=== PATIENT | male | born 1950 | race Caucasian/White ===

== ENCOUNTER 2018-05-31 19:14 | Emergency (ER) | payer MEDICARE, OTHER ==
[2018-05-31 19:43] LABS: BASOPHILS # (AUTO) 0.1 10^3/uL (0.0-0.1); BASOPHILS % (AUTO) 1.1 %; EOSINOPHILS # (AUTO) 0.1 10^3/uL (0.0-0.7); HGB - HEMOGLOBIN 14.5 g/dL (14.0-18.0); LYMPHOCYTES # (AUTO) 0.6 10^3/uL (1.5-3.5); LYMPHOCYTES % (AUTO) 7.9 %; MEAN CORPUSCULAR HGB CONC 34.4 g/dL (32.0-36.0); MEAN CORPUSCULAR VOLUME 90.2 fL (80.0-94.0); MEAN PLATELET VOLUME 7.2 fL (7.4-11.4); MONOCYTES # (AUTO) 0.4 10^3/uL (0.0-1.0); NEUTROPHILS # (AUTO) 6.9 10^3/uL (1.5-6.6); PLT - PLATELET COUNT 249 10^3/uL (130-450); RED BLOOD COUNT 4.68 10^6/uL (4.70-6.10); RED CELL DISTRIBUTION WIDTH 14.4 % (12.0-15.0); WHITE BLOOD COUNT 8.1 x10^3/uL (4.8-10.8)
[2018-05-31 20:07] LABS: GLUCOSE, URINE (UA) 100 mg/dL (NEGATIVE); KETONES,URINE (UA) NEGATIVE (NEGATIVE); LEUKOCYTE ESTERASE, URINE NEGATIVE (NEGATIVE); NITRITE,URINE NEGATIVE (NEGATIVE); OCCULT BLOOD,URINE LARGE (NEGATIVE); PROTEIN,URINE 100 mg/dL (NEGATIVE); UROBILINOGEN,URINE 0.2 (NORMAL) E.U./dL (NORMAL)
[2018-05-31 20:09] LABS: ALBUMIN 4.4 g/dL (3.2-5.5); ALBUMIN/GLOBULIN RATIO 1.5 (1.0-2.2); BILIRUBIN,TOTAL 0.6 mg/dL (0.2-1.0); CALCIUM 8.9 mg/dL (8.5-10.3); TOTAL PROTEIN 7.4 g/dL (6.7-8.2)
[2018-05-31] MEDS ORDERED: ONDANSETRON 4 MG/2 ML VIAL IVP STA (20:16)
[2018-05-31] MEDS ORDERED: KETOROLAC 60 MG/2 ML VIAL IVP STA (20:16)
[2018-05-31] MEDS ORDERED: SODIUM CHLORIDE 0.9% 1,000 ML IV ONE (20:16)
--- NOTE | 2018-05-31 20:19 | ED Physician Documentation ---
PD HPI ABD PAIN - Stated complaint Stated Complaint: BACK PX - Chief complaint Chief Complaint: Back Pain - History obtained from History obtained from: Patient - History of Present Illness Timing - onset: Today Timing - duration: Days (1) Timing - details: Abrupt onset Pain level max: 10 Pain level now: 5 Quality: Aching, Pain Location: Other (L flank) Radiation: Other (L groin) Improved by: Other (nothing) Worsened by: Other (nothing) Associated symptoms: Nausea. No: Fever, Vomiting, Hematemesis, Diarrhea, Constipation, Melena, Hematochezia, Dysuria Similar symptoms before: Diagnosis (kidney stones) Recently seen: Not recently seen Review of Systems Constitutional: denies: Fever, Chills Nose: denies: Rhinorrhea / runny nose, Congestion Throat: denies: Sore throat Cardiac: denies: Chest pain / pressure Respiratory: denies: Cough GI: reports: Nausea. denies: Vomiting, Diarrhea : reports: Hematuria. denies: Dysuria, Frequency, Hesitancy Skin: denies: Rash Musculoskeletal: denies: Neck pain Neurologic: denies: Focal weakness, Numbness PD PAST MEDICAL HISTORY - Past Medical History Past Medical History: Yes Cardiovascular: Hypertension, High cholesterol, [place] Respiratory: None Endocrine/Autoimmune: Type 2 diabetes GI: GERD : None HEENT: None Psych: None Musculoskeletal: Osteoarthritis, Chronic back pain Derm: None - Past Surgical History Past Surgical History: Yes Ortho: Hip replacement Cardiovascular: Angioplasty - Present Medications Home Medications: Ambulatory Orders Medication Instructions Recorded Confirmed Atorvastatin [Lipitor] 40 mg ORAL DAILY 02/21/14 02/21/14 Lansoprazole [Prevacid] 30 mg ORAL DAILY 02/21/14 02/21/14 Lisinopril 10 mg ORAL DAILY 02/21/14 02/21/14 Metoprolol Succinate [Toprol Xl] 100 mg ORAL DAILY 02/21/14 02/21/14 Multivitamin with Minerals 1 tab ORAL DAILY 02/21/14 02/21/14 [Myvitalife] Furosemide 20 mg PO DAILY 05/31/18 05/31/18 Hydrocodone/Acetaminophen 1 - 2 each PO Q6H PRN #14 tablet 05/31/18 [Hydrocodon-Acetaminophen 5-325] Ibuprofen [Motrin] 800 mg PO Q8H PRN #30 tablet 05/31/18 Ondansetron Odt [Zofran] 4 mg TL Q6H PRN #10 tablet 05/31/18 - Allergies Allergies/Adverse Reactions: Allergies Allergy/AdvReac Type Severity Reaction Status Date / Time No Known Drug Allergies Allergy Verified 05/31/18 19:38 - Social History Does the pt smoke?: No Smoking Status: Never smoker Does the pt drink ETOH?: Yes Does the pt have substance abuse?: No - Immunizations Immunizations are current?: No Immunizations: TDAP >10years/unknown PD ED PE NORMAL - Vitals Vital signs reviewed: Yes - General General: Alert and oriented X 3, No acute distress - HEENT HEENT: Moist mucous membranes - Neck Neck: Supple, no meningeal sign - Cardiac Cardiac: RRR, Strong equal pulses - Respiratory Respiratory: No respiratory distress, Clear bilaterally - Abdomen Abdomen: Soft, Non tender, Non distended - Back Back: No CVA TTP, No spinal TTP - Derm Derm: Warm and dry - Neuro Neuro: Alert and oriented X 3 - Psych Psych: Normal mood, Normal affect Results - Vitals Vitals: Vital Signs - 24 hr 05/31/18 05/31/18 19:21 21:51 Temperature 36.5 C 36.5 C Heart Rate 86 79 Respiratory 18 12 Rate Blood Pressure 152/96 H 159/109 H O2 Saturation 96 93 Oxygen O2 Source Room air - Labs Labs: Laboratory Tests 05/31/18 05/31/18 05/31/18 19:39 19:39 19:50 WBC 8.1 RBC 4.68 L Hgb 14.5 Hct 42.2 MCV 90.2 MCH 31.0 MCHC 34.4 RDW 14.4 Plt Count 249 MPV 7.2 L Neut # (Auto) 6.9 H Lymph # (Auto) 0.6 L [place] # (Auto) 0.4 Eos # (Auto) 0.1 Baso # (Auto) 0.1 Absolute Nucleated RBC 0.00 Nucleated RBC % 0.1 Sodium 138 Potassium 4.1 Chloride 106 Carbon Dioxide 26 Anion Gap 6.0 BUN 17 Creatinine 1.0 Estimated GFR (MDRD) 74 L Glucose 187 H Calcium 8.9 Total Bilirubin 0.6 AST 34 ALT 35 Alkaline Phosphatase 122 H Total Protein 7.4 Albumin 4.4 Globulin 3.0 Albumin/Globulin Ratio 1.5 Lipase 46 Urine Color BROWN Urine Clarity CLOUDY Urine pH 6.0 Ur Specific [place] 1.025 Urine Protein 100 H Urine Glucose (UA) 100 H Urine Ketones NEGATIVE Urine Occult Blood LARGE H Urine Nitrite NEGATIVE Urine Bilirubin NEGATIVE Urine Urobilinogen 0.2 (NORMAL) Ur Leukocyte Esterase NEGATIVE Urine RBC TNTC H Urine WBC 4-5 Ur Squamous Epith Cells RARE Squamous Urine Bacteria Few Urine Yeast PRESENT Ur Microscopic Review INDICATED Urine Culture Comments NOT INDICATED - Rads (name of study) CT abd/pelvis Radiology: Prelim report reviewed, EMP read contemporaneously, See rad report ( Nephrolithiasis with minimal left hydronephrosis and a proximal left ureteral stone measuring 3 x 3 x 6 mm. Right ureteropelvic junction stone measuring 5 mm although without evidence of hydronephrosis. Note is also made of a bladder stone measuring 2 mm. This could be free within the bladder although this is near the level of the right ureteropelvic junction. Differentiation between a free bladder stone or right ureteropelvic junction stone is limited given the beam hardening artifact from the patient's right total hip prosthesis. Small hiatal hernia. . Cholelithiasis without evidence of cholecystitis. Fatty infiltration of the liver. ) PD MEDICAL DECISION MAKING - ED course Complexity details: reviewed results, re-evaluated patient, considered differential, d/w patient ED course: Patient is a 68-year-old male who presents to the emergency department with ureterolithiasis. Pain is well-controlled. No evidence of UTI. He is well- appearing, nontoxic. No evidence of sepsis. We will continue supportive care and follow-up with his doctor. He would likely benefit from a urology referral from his PCP. Patient counseled regarding signs and symptoms for which I believe and urgent re-evaluation would be necessary. Patient with good understanding of and agreement to plan and is comfortable going home at this time This document was made in part using voice recognition software. While efforts are made to proofread this document, sound alike and grammatical errors may occur. - Sepsis Event Vital Signs: Vital Signs - 24 hr 05/31/18 05/31/18 19:21 21:51 Temperature 36.5 C 36.5 C Heart Rate 86 79 Respiratory 18 12 Rate Blood Pressure 152/96 H 159/109 H O2 Saturation 96 93 Oxygen O2 Source Room air Departure - Departure Disposition: 01 Home, Self Care Clinical Impression: Ureteral stone Condition: Good Instructions: ED Stone Renal W Colic Follow-Up: GABRIELE LUNDBERG MD [Primary Care Provider] - Within 1 week Prescriptions: Hydrocodone/Acetaminophen [Hydrocodon-Acetaminophen 5-325] 1 - 2 each PO Q6H PRN #14 tablet PRN Reason: pain Ibuprofen [Motrin] 800 mg PO Q8H PRN #30 tablet PRN Reason: PAIN &/OR FEVER Ondansetron Odt [Zofran] 4 mg TL Q6H PRN #10 tablet PRN Reason: Nausea / Vomiting Comments: You do have multiple ureteral stones. You should follow-up with urology for further care. Use the medication as needed for pain. Return immediately for fevers. Return if you have uncontrolled pain as well. Return if you worsen in any other way Do not drink alcohol or drive while on narcotic pain medicine. Note that many narcotic pain relievers also contain tylenol/acetaminophen. Please ensure that your total dose of acetaminophen from all sources does not exceed 3 grams (3000mg) per day. You may constipated on this medication, take a stool softener such as "Colace" twice a day while you are on it. Also recommend a [id number] laxative such as senna or MiraLAX any day that you do not have a bowel movement. If you received narcotic pain medication in the emergency department, do not drive or operate machinery for the next 24 hours. Discharge Date/Time: 05/31/18 21:49
[2018-05-31 20:39] LABS: BILIRUBIN,URINE NEGATIVE (NEGATIVE); ICTOTEST,URINE NEGATIVE
[2018-05-31 20:40] LABS: CLARITY,URINE CLOUDY (CLEAR)
[2018-05-31 20:52] LABS: BACTERIA,URINE Few /HPF (None Seen); RBC,URINE TNTC /HPF (0-5); SQUAMOUS EPITHELIAL CELL,UR RARE Squamous (<= Few)
[2018-05-31 20:53] LABS: YEAST,URINE PRESENT
--- NOTE | 2018-05-31 21:16 | CT Report ---
Reason: L flank pain, h/o renal stones Procedure Date: 05/31/2018 Accession Number: [id number] / [id number] Procedure: CT - Abdomen/Pelvis W/O CPT Code: FULL RESULT: EXAM: CT ABDOMEN AND PELVIS EXAM DATE: 05/31/2018 08:49 PM. CLINICAL HISTORY: Left flank pain COMPARISONS: None. TECHNIQUE: Routine helical CT imaging was performed through the abdomen and pelvis. IV contrast: None. Enteric contrast: No. Reconstructions: Coronal and sagittal. In accordance with CT protocol optimization, one or more of the following dose reduction techniques were utilized for this exam: automated exposure control, adjustment of mA and/or KV based on patient size, or use of iterative reconstructive technique. FINDINGS: Lung Bases: Minimal diskoid atelectasis. Small hiatal hernia. Coronary atherosclerosis. Liver: Diffusely decreased density of the liver consistent with fatty infiltration. Gallbladder/Bile Ducts: Contracted gallbladder with cholelithiasis without pericholecystic inflammation. Spleen: Normal. Pancreas: Normal. Adrenal Glands: Normal. Kidneys: There are 2 nonobstructing stones of the right kidney with a right ureteropelvic junction stone measuring 5 mm although without evidence of hydronephrosis. The right ureter is decompressed. On the left there is a nonobstructing stone at the lower pole measuring 7 mm although with minimal left hydronephrosis. There is a proximal left ureteral stone measuring 3 x 3 x 6 mm (3, 67). Peritoneal Cavity/Bowel: Small hiatal hernia. Remainder of the stomach is decompressed. No dilated loops of large or small intestine. The appendix is seen and is unremarkable. Pelvic Organs: There is a 2 mm calcification within the right posterior aspect of the bladder. Prostate unremarkable. Bilateral fat-containing indirect inguinal hernias. Vasculature: Atherosclerosis with the infrarenal abdominal aorta measuring up to 4.6 cm. There is an aortobiiliac stent graft present which extends to the distal aspect of the common iliac arteries bilaterally. Bones: Status post right total hip replacement. Other: None. IMPRESSION: 1. Nephrolithiasis with minimal left hydronephrosis and a proximal left ureteral stone measuring 3 x 3 x 6 mm. 2. Right ureteropelvic junction stone measuring 5 mm although without evidence of hydronephrosis. Note is also made of a bladder stone measuring 2 mm. This could be free within the bladder although this is near the level of the right ureteropelvic junction. Differentiation between a free bladder stone or right ureteropelvic junction stone is limited given the beam hardening artifact from the patient's right total hip prosthesis. 3. Small hiatal hernia. 4. Cholelithiasis without evidence of cholecystitis. 5. Fatty infiltration of the liver. RADIA
[2018-05-31 21:52] VITALS: BP 159/109
== END 2018-05-31 21:49 | disposition home or self-care (01) ==
LOC: ED 19:14
DX: N13.2 Hydronephrosis with renal and ureteral calculous obstruction (principal); K44.9 Diaphragmatic hernia without obstruction or gangrene; N20.1 Calculus of ureter; N21.0 Calculus in bladder; K80.20 Calculus of gallbladder without cholecystitis without obstruction; K76.0 Fatty (change of) liver, not elsewhere classified; E11.9 Type 2 diabetes mellitus without complications; Z87.442 Personal history of urinary calculi; I10 Essential (primary) hypertension
CPT/HCPCS: 36415; 74176; 80053; 81001; 81003; 83690; 85025; 87086; 96361; 96374; 99283; 99284

== ENCOUNTER 2018-10-22 02:21 | Outpatient (CLI) | payer MEDICARE | END 2018-10-22 02:22 | disposition critical access hospital (66) | LOC: EMS 02:21 | PROVIDERS: ATTEND Surgery | DX: R07.9 Chest pain, unspecified (principal); R06.02 Shortness of breath; R60.9 Edema, unspecified; R05 Cough; I25.2 Old myocardial infarction | CPT/HCPCS: A0425; A0427 ==

== ENCOUNTER 2018-10-22 02:58 | Emergency (ER) | payer MEDICARE, OTHER ==
[2018-10-22] MEDS ORDERED: METOPROLOL 5 MG/5 ML VIAL IVP STA (03:12)
--- NOTE | 2018-10-22 03:14 | ED Physician Documentation ---
PD HPI DYSPNEA - Stated complaint Stated Complaint: SOA - History obtained from History obtained from: Patient, EMS - History of Present Illness Timing - onset: Today Timing - onset during: Light activity Timing - duration: Hours (had onset of dyspnea and feeling chest tightness, worsened and so called EMS. They heard wheezing and gave neb treatment with improvement. Has some mild edema as well. No cough.) Timing - details: Abrupt onset, Now resolved (improved significantly with neb treatment enroute) Associated symptoms: Wheezing, Bilateral edema (mild chronic). No: Fever, Cough, Chest pain / discomfort, Unilateral edema Similar symptoms before: Has not had sx before Recently seen: Not recently seen Review of Systems Constitutional: denies: Fever, Chills, Myalgias Nose: denies: Rhinorrhea / runny nose, Congestion Throat: denies: Sore throat Respiratory: denies: Cough GI: denies: Nausea, Vomiting, Diarrhea PD PAST MEDICAL HISTORY - Past Medical History Cardiovascular: Hypertension, High cholesterol, [place] Respiratory: None Endocrine/Autoimmune: Type 2 diabetes GI: GERD : None HEENT: None Psych: None Musculoskeletal: Osteoarthritis, Chronic back pain Derm: None - Past Surgical History Past Surgical History: Yes Ortho: Hip replacement Cardiovascular: Angioplasty - Present Medications Home Medications: Ambulatory Orders Medication Instructions Recorded Confirmed Lansoprazole [Prevacid] 15 mg ORAL DAILY 02/21/14 10/22/18 RX: Atorvastatin [Lipitor] 40 mg ORAL DAILY 02/21/14 10/22/18 RX: Metoprolol Succinate [Toprol 100 mg ORAL DAILY 02/21/14 10/22/18 Xl] RX: Multivitamin with Minerals 1 tab ORAL DAILY 02/21/14 10/22/18 [Myvitalife] RX: Furosemide 20 mg PO DAILY 05/31/18 10/22/18 Acetaminophen [Tylenol] 2 tab PO DAILY 10/22/18 10/22/18 RX: Albuterol Sulf [Ventolin Hfa 2 - 3 puffs INH Q4HR PRN #1 inhaler 10/22/18 Inhaler] RX: Aspirin [Children's Aspirin] 1 tab PO DAILY 10/22/18 10/22/18 RX: Losartan Potassium 1 tab PO DAILY 10/22/18 10/22/18 RX: Naproxen Sodium 1 tab PO DAILY 10/22/18 10/22/18 RX: metFORMIN [Glucophage] 1,000 mg PO DAILY 10/22/18 10/22/18 - Allergies Allergies/Adverse Reactions: Allergies Allergy/AdvReac Type Severity Reaction Status Date / Time No Known Drug Allergies Allergy Verified 10/22/18 03:23 - Social History Does the pt smoke?: No Smoking Status: Never smoker Does the pt drink ETOH?: Yes Does the pt have substance abuse?: No - Immunizations Immunizations are current?: No Immunizations: TDAP >10years/unknown PD ED PE NORMAL - Vitals Vital signs reviewed: Yes - General General: Alert and oriented X 3, No acute distress, Well developed/nourished - HEENT HEENT: Moist mucous membranes, Pharynx benign - Neck Neck: Supple, no meningeal sign, No adenopathy - Cardiac Cardiac: RRR, No murmur - Respiratory Respiratory: No respiratory distress, Clear bilaterally - Abdomen Abdomen: Soft, Non tender - Derm Derm: Normal color, Warm and dry - Extremities Extremities: No deformity, No tenderness to palpate, Normal ROM s pain, No edema, No calf tenderness / cord Results - Vitals Vitals: Vital Signs - 24 hr 10/22/18 10/22/18 10/22/18 03:00 03:35 03:50 Temperature 37.1 C Heart Rate 108 H 102 H 93 Respiratory 22 19 19 Rate Blood Pressure 193/111 H 163/87 H 154/88 H O2 Saturation 94 95 96 10/22/18 10/22/18 10/22/18 04:10 05:01 05:39 Temperature 36.8 C Heart Rate 89 89 84 Respiratory 22 24 20 Rate Blood Pressure 148/96 H 146/98 H 132/98 H O2 Saturation 95 97 95 10/22/18 10/22/18 10/22/18 06:13 06:17 06:25 Temperature Heart Rate 87 86 85 Respiratory 24 15 20 Rate Blood Pressure 156/98 H 128/75 O2 Saturation 96 96 Oxygen O2 Source Room air Oxygen Flow Rate 2 - EKG (time done) presentation Rhythm: NSR [place]: Normal Intervals: Normal IN QRS: Normal Ischemia: Normal ST segments. No: ST elevation c/w ischemia, ST depression - Labs Labs: Laboratory Tests 10/22/18 10/22/18 10/22/18 03:15 03:15 03:15 WBC 8.4 RBC 4.37 L Hgb 13.3 L Hct 40.3 L MCV 92.2 MCH 30.4 MCHC 32.9 RDW 14.8 Plt Count 187 MPV 6.7 L Neut # (Auto) 7.2 H Lymph # (Auto) 0.7 L [place] # (Auto) 0.4 Eos # (Auto) 0.1 Baso # (Auto) 0.0 Absolute Nucleated RBC 0.00 Nucleated RBC % 0.0 Sodium 137 Potassium 3.8 Chloride 100 L Carbon Dioxide 28 Anion Gap 9.0 BUN 16 Creatinine 0.9 Estimated GFR (MDRD) 83 L Glucose 174 H Calcium 8.8 Magnesium 1.5 L Total Bilirubin 0.9 AST 32 ALT 29 Alkaline Phosphatase 100 Troponin I < 0.04 B-Natriuretic Peptide Total Protein 7.2 Albumin 4.0 Globulin 3.2 Albumin/Globulin Ratio 1.3 Lipase 42 10/22/18 10/22/18 03:15 05:16 WBC RBC Hgb Hct MCV MCH MCHC RDW Plt Count MPV Neut # (Auto) Lymph # (Auto) [place] # (Auto) Eos # (Auto) Baso # (Auto) Absolute Nucleated RBC Nucleated RBC % Sodium Potassium Chloride Carbon Dioxide Anion Gap BUN Creatinine Estimated GFR (MDRD) Glucose Calcium Magnesium Total Bilirubin AST ALT Alkaline Phosphatase Troponin I 0.04 B-Natriuretic Peptide 50 Total Protein Albumin Globulin Albumin/Globulin Ratio Lipase - Rads (name of study) chest xray Radiology: Prelim report reviewed, EMP read contemporaneously (no infiltrates nor signs of failure. ), See rad report PD MEDICAL DECISION MAKING - ED course Complexity details: re-evaluated patient (His breathing remains good here in the department. Lab tests do not suggest heart attack, congestive failure, [place], and pneumothorax. His symptoms have been shortness of breath and some wheeziness and tightness and improved with a nebulizer treatment and has remained without symptoms here. I would presume a bronchospastic episode for some reason. He had been sweeping out to the garage earlier in the day but did not feel coughing at the time.), considered differential, d/w patient Departure - Departure Disposition: 01 Home, Self Care Clinical Impression: Acute dyspnea, Acute bronchospasm Condition: Stable Record reviewed to determine appropriate education?: Yes Instructions: ED Dyspnea Shortness of Breath Follow-Up: Ascencion Romero MD [Primary Care Provider] - Prescriptions: RX: Albuterol Sulf [Ventolin Hfa Inhaler] 2 - 3 puffs INH Q4HR PRN #1 inhaler PRN Reason: Shortness Of Air/Wheezing Comments: No signs of more significant process such as heart attack, heart failure, pneumonia, fluid in the lungs or collapsed lung. I would presume this was an episode of bronchospasm or such perhaps related to the dust you would encoun tered earlier. At this point I would not predicted to come back the way that it did but you may have some slight shortness of breath over the next day or 2 and you can use an albuterol inhaler as needed for that. Recheck if worse symptoms or new symptoms develop. Follow-up with your primary care. Discharge Date/Time: 10/22/18 06:26
[2018-10-22 03:24] LABS: BASOPHILS % (AUTO) 0.6 %; EOSINOPHILS # (AUTO) 0.1 10^3/uL (0.0-0.7); EOSINOPHILS % (AUTO) 0.6 %; HGB - HEMOGLOBIN 13.3 g/dL (14.0-18.0); LYMPHOCYTES # (AUTO) 0.7 10^3/uL (1.5-3.5); LYMPHOCYTES % (AUTO) 8.1 %; MEAN CORPUSCULAR HEMOGLOBIN 30.4 pg (27.0-31.0); MEAN CORPUSCULAR HGB CONC 32.9 g/dL (32.0-36.0); MEAN CORPUSCULAR VOLUME 92.2 fL (80.0-94.0); MEAN PLATELET VOLUME 6.7 fL (7.4-11.4); MONOCYTES # (AUTO) 0.4 10^3/uL (0.0-1.0); NEUTROPHILS # (AUTO) 7.2 10^3/uL (1.5-6.6); NEUTROPHILS % (AUTO) 85.7 %; PLT - PLATELET COUNT 187 10^3/uL (130-450); RED BLOOD COUNT 4.37 10^6/uL (4.70-6.10); RED CELL DISTRIBUTION WIDTH 14.8 % (12.0-15.0); WHITE BLOOD COUNT 8.4 x10^3/uL (4.8-10.8)
[2018-10-22 03:36] LABS: ALBUMIN/GLOBULIN RATIO 1.3 (1.0-2.2); BILIRUBIN,TOTAL 0.9 mg/dL (0.2-1.0); CALCIUM 8.8 mg/dL (8.5-10.3); CREATININE 0.9 mg/dL (0.6-1.2); MAGNESIUM 1.5 mg/dL (1.7-2.8); TOTAL PROTEIN 7.2 g/dL (6.7-8.2)
[2018-10-22] MEDS ORDERED: MAGNESIUM SULFATE 2 GRAM 2 GM/50 ML BAG IV ONE (03:52)
--- NOTE | 2018-10-22 04:28 | XRAY Report ---
Reason: dyspnea for few hours Procedure Date: 10/22/2018 Accession Number: [id number] / [id number] Procedure: XR - Chest 1 View X-Ray CPT Code: 68614 FULL RESULT: EXAM: CHEST RADIOGRAPHY EXAM DATE: 10/22/2018 04:19 AM. CLINICAL HISTORY: Dyspnea for few hours. COMPARISON: CHEST 2 VIEW PA/LAT 02/21/2014 5:03 PM. TECHNIQUE: 1 view. FINDINGS: Lungs/Pleura: Pulmonary vascular congestion. Mild bibasilar atelectasis or infiltrate. No pleural effusion seen. No pneumothorax. Mediastinum: Within exam limitations, heart size normal to upper normal. Other: Osteopenia. Degenerative changes in the shoulders. IMPRESSION: 1. Normal to upper normal heart size with pulmonary vascular congestion. 2. Mild bibasilar atelectasis or less likely infiltrate. RADIA
[2018-10-22] MEDS ORDERED: ALBUTEROL NEB 2.5 MG/3 ML INH STA (05:52)
[2018-10-22 06:26] VITALS: BP 128/75
== END 2018-10-22 06:26 | disposition home or self-care (01) ==
LOC: EDUNIT# → ED 02:58
DX: R06.00 Dyspnea, unspecified (principal); J98.01 Acute bronchospasm; I10 Essential (primary) hypertension; E78.00 Pure hypercholesterolemia, unspecified; I25.2 Old myocardial infarction; Z96.649 Presence of unspecified artificial hip joint; E11.9 Type 2 diabetes mellitus without complications; Z79.82 Long term (current) use of aspirin; Z98.61 Coronary angioplasty status
CPT/HCPCS: 36415; 71045; 80053; 83690; 83735; 83880; 84484; 85025; 93005; 96365; 96375; 99283; 99285

== ENCOUNTER 2020-09-19 13:00 | Outpatient (CLI) | payer MEDICARE, OTHER | END 2020-09-19 23:59 | disposition home or self-care (01) | LOC: COV 13:00 | PROVIDERS: ATTEND Family Medicine | DX: R05 Cough (principal); M79.10 Myalgia, unspecified site; R09.81 Nasal congestion; Z20.828 Contact with and (suspected) exposure to other viral communicable diseases ==

== ENCOUNTER 2021-08-17 17:33 | Outpatient (CLI) | payer MEDICARE, OTHER | END 2021-08-17 23:59 | disposition short-term general hospital (02) | LOC: EMS 17:33 | DX: R56.9 Unspecified convulsions (principal) | CPT/HCPCS: A0425; A0427 ==

== ENCOUNTER 2021-09-10 18:54 | Outpatient (CLI) | payer MEDICARE, OTHER | END 2021-09-10 18:55 | disposition critical access hospital (66) | LOC: EMS 18:54 | DX: K62.5 Hemorrhage of anus and rectum (principal); R33.9 Retention of urine, unspecified | CPT/HCPCS: A0425; A0429 ==

== ENCOUNTER 2021-09-10 19:38 | Observation (INO) | payer MEDICARE, OTHER ==
--- NOTE | 2021-09-10 19:46 | ED Physician Documentation ---
PD HPI GI BLEED - Stated complaint Stated Complaint: RECTAL BLEED, BRAIN CA - Additional information Additional information: Patient is a 71-year-old male with known history of brain CA presenting to the emergency department with report of painless bright red blood per rectum earlier this evening. Accompanied by daughter who is present at bedside. Patient recently hospitalized at [facility] for ongoing chemotherapy for his brain carcinoma. Reports was doing well at home however earlier this evening had a bright red bloody bowel movement. Family reports that he has a history of hemorrhoids as well as diverticulosis. He does not take any blood thinning medications. Patient is confused at baseline and is an otherwise poor historian. Review of Systems Unable to obtain: Confused PD PAST MEDICAL HISTORY - Past Medical History Cardiovascular: Hypertension, High cholesterol, [place] Respiratory: None Endocrine/Autoimmune: Type 2 diabetes GI: GERD : None HEENT: None Psych: None Musculoskeletal: Osteoarthritis, Chronic back pain Derm: None - Past Surgical History Past Surgical History: Yes Ortho: Hip replacement Cardiovascular: Angioplasty - Present Medications Home Medications: Ambulatory Orders Medication Instructions Recorded Confirmed Atorvastatin [Lipitor] 40 mg ORAL DAILY 02/21/14 09/10/21 Lansoprazole [Prevacid] 15 mg ORAL DAILY 02/21/14 09/10/21 Metoprolol Succinate [Toprol Xl] 100 mg ORAL DAILY 02/21/14 09/10/21 metFORMIN [Glucophage] 2,000 mg PO DAILY 10/22/18 09/10/21 Cyanocobalamin (Vitamin B-12) 2,000 mg PO DAILY 09/10/21 09/10/21 [Vitamin B-12] Insulin Glargine [Lantus Solostar] 26 units SQ BID 09/10/21 09/10/21 Isosorbide Mononitrate ER [Imdur] 30 mg PO DAILY 09/10/21 09/10/21 Leucovorin Calcium 25 mg PO TID 09/10/21 09/10/21 Levetiracetam [Keppra] 500 mg PO BID 09/10/21 09/10/21 Tamsulosin HCl [Flomax] 0.4 mg PO DAILY 09/10/21 09/10/21 - Allergies Allergies/Adverse Reactions: Allergies Allergy/AdvReac Type Severity Reaction Status Date / Time No Known Drug Allergies Allergy Verified 09/10/21 19:45 - Social History Does the pt smoke?: No Smoking Status: Never smoker Does the pt drink ETOH?: Yes Does the pt have substance abuse?: No - Immunizations Immunizations are current?: No Immunizations: TDAP >10years/unknown PD ED PE NORMAL - General General: No acute distress - HEENT HEENT: Atraumatic - Neck Neck: Supple, no meningeal sign - Cardiac Cardiac: RRR - Respiratory Respiratory: No respiratory distress, Clear bilaterally - Abdomen Abdomen: Normal bowel sounds, Soft, Non tender, Non distended, No organomegaly - Back Back: No CVA TTP - Extremities Extremities: No deformity - Neuro Neuro: research program internship 2-12 intact, No motor deficit, No sensory deficit, Normal speech PD ED PE EXPANDED - Rectal Rectal: Heme Occult Neg - QC+, [employer] present, Other (Gross red blood mixed in with well-formed light brown stool. No appreciable internal or external hemorrhoids. No anal fissure identified.) Results - Vitals Vitals: Vital Signs - 24 hr 09/10/21 09/10/21 09/10/21 19:32 19:42 21:00 Temperature 36.8 C Heart Rate 64 72 78 Respiratory 13 16 16 Rate Blood Pressure 151/84 H 151/84 H 179/81 H O2 Saturation 97 99 100 Oxygen O2 Source Room air - Labs Labs: Microbiology 09/10/21 20:08 Occult Blood - Final Stool Laboratory Tests 09/10/21 09/10/21 09/10/21 20:11 20:11 20:11 WBC 8.4 RBC 4.05 L Hgb 11.5 L Hct 36.0 L MCV 88.9 MCH 28.4 MCHC 31.9 L RDW 16.0 H Plt Count 157 MPV 8.0 Neut # (Auto) 7.8 H Lymph # (Auto) 0.2 L Kinney # (Auto) 0.2 Eos # (Auto) 0.1 Baso # (Auto) 0.0 Absolute Nucleated RBC 0.00 Nucleated RBC % 0.0 PT INR Sodium 134 L Potassium 3.6 Chloride 94 L Carbon Dioxide 30 Anion Gap 10.0 BUN 19 Creatinine 1.0 Estimated GFR (MDRD) 73 L Glucose 58 L* Calcium 8.6 Total Bilirubin 1.2 H AST 21 ALT 30 Alkaline Phosphatase 66 Total Protein 5.7 L Albumin 3.6 Globulin 2.1 Albumin/Globulin Ratio 1.7 Lipase 46 Nasal Adenovirus (PCR) Nasal B. parapertussis DNA (PCR) Nasal Coronavir 229E PCR Nasal Coronavir HKU1 PCR Nasal Coronavir NL63 PCR Nasal Coronavir OC43 PCR Nasal Enterovir/Rhinovir PCR Nasal Influenza B PCR Nasal Influenza A PCR Nasal Parainfluen 1 PCR Nasal Parainfluen 2 PCR Nasal Parainfluen 3 PCR Nasal Parainfluen 4 PCR Nasal RSV (PCR) Nasal B.pertussis DNA PCR Nasal C.pneumoniae (PCR) Pito Human Metapneumo PCR Nasal M.pneumoniae (PCR) Nasal SARS-CoV-2 (PCR) Blood Type O POSITIVE Blood Type Recheck Antibody Screen NEGATIVE 09/10/21 09/10/21 09/10/21 20:35 20:35 22:40 WBC RBC Hgb Hct MCV MCH MCHC RDW Plt Count MPV Neut # (Auto) Lymph # (Auto) Kinney # (Auto) Eos # (Auto) Baso # (Auto) Absolute Nucleated RBC Nucleated RBC % PT 11.9 INR 1.1 Sodium Potassium Chloride Carbon Dioxide Anion Gap BUN Creatinine Estimated GFR (MDRD) Glucose Calcium Total Bilirubin AST ALT Alkaline Phosphatase Total Protein Albumin Globulin Albumin/Globulin Ratio Lipase Nasal Adenovirus (PCR) NOT DETECTED Nasal B. parapertussis DNA (PCR) NOT DETECTED Nasal Coronavir 229E PCR NOT DETECTED Nasal Coronavir HKU1 PCR NOT DETECTED Nasal Coronavir NL63 PCR NOT DETECTED Nasal Coronavir OC43 PCR NOT DETECTED Nasal Enterovir/Rhinovir PCR NOT DETECTED Nasal Influenza B PCR NOT DETECTED Nasal Influenza A PCR NOT DETECTED Nasal Parainfluen 1 PCR NOT DETECTED Nasal Parainfluen 2 PCR NOT DETECTED Nasal Parainfluen 3 PCR NOT DETECTED Nasal Parainfluen 4 PCR NOT DETECTED Nasal RSV (PCR) NOT DETECTED Nasal B.pertussis DNA PCR NOT DETECTED Nasal C.pneumoniae (PCR) NOT DETECTED Pito Human Metapneumo PCR NOT DETECTED Nasal M.pneumoniae (PCR) NOT DETECTED Nasal SARS-CoV-2 (PCR) NOT DETECTED Blood Type Blood Type Recheck O POSITIVE Antibody Screen PD MEDICAL DECISION MAKING - ED course Complexity details: reviewed results, d/w patient, d/w family, d/w library consultant ED course: Patient is 71-year-old male presenting to the emergency department after episode of painless bright red blood per rectum. Patient is currently being treated for brain carcinoma and has confusion at baseline. History is somewhat limited by this fact however family reports that he had an episode of modest bright red blood per rectum that occurred earlier today. They endorsed for history of both diverticulosis as well as hemorrhoids. On arrival to the emergency department he was afebrile, hemodynamically stable without indications of significant blood loss or shock. Rectal exam did demonstrate gross red blood in the rectal vault mixed in with well-formed stool. I did not identify any hemorrhoid or fissure on my rectal examination. His abdomen was otherwise very soft and benign without focal tenderness or indications of peritoneal irritation. Comprehensive labs demonstrated a mild anemia with hemoglobin 11.5 with most recent for comparison in 2019 of 13.0. Given that he is currently being treated for his brain CA with chemotherapy it is difficult to say whether or not this represents acute blood loss. I did obtain a CT of his abdomen pelvis which was largely benign. I did discuss his care directly with the hospitalist service. At this time he will be hospitalized for further evaluation and treatment. Departure - Departure Disposition: ED Place in Observation Clinical Impression: Lower GI bleed Condition: Good Discharge Date/Time: 09/11/21 00:19
[2021-09-10] MEDS ORDERED: IOPAMIDOL-300 100 ML VIAL ONE (20:17)
[2021-09-10 20:20] LABS: BASOPHILS % (AUTO) 0.1 %; EOSINOPHILS # (AUTO) 0.1 10^3/uL (0.0-0.7); EOSINOPHILS % (AUTO) 0.8 %; HGB - HEMOGLOBIN 11.5 g/dL (14.0-18.0); LYMPHOCYTES # (AUTO) 0.2 10^3/uL (1.5-3.5); LYMPHOCYTES % (AUTO) 2.4 %; MEAN CORPUSCULAR HEMOGLOBIN 28.4 pg (27.0-31.0); MEAN CORPUSCULAR HGB CONC 31.9 g/dL (32.0-36.0); MEAN CORPUSCULAR VOLUME 88.9 fL (80.0-94.0); MONOCYTES # (AUTO) 0.2 10^3/uL (0.0-1.0); MONOCYTES % (AUTO) 2.6 %; NEUTROPHILS # (AUTO) 7.8 10^3/uL (1.5-6.6); NEUTROPHILS % (AUTO) 93.5 %; PLT - PLATELET COUNT 157 10^3/uL (130-450); RED BLOOD COUNT 4.05 10^6/uL (4.70-6.10); WHITE BLOOD COUNT 8.4 x10^3/uL (4.8-10.8)
[2021-09-10 20:37] LABS: ALBUMIN 3.6 g/dL (3.2-5.5); ALBUMIN/GLOBULIN RATIO 1.7 (1.0-2.2); BILIRUBIN,TOTAL 1.2 mg/dL (0.2-1.0); CALCIUM 8.6 mg/dL (8.5-10.3); POTASSIUM 3.6 mmol/L (3.5-5.0); TOTAL PROTEIN 5.7 g/dL (6.7-8.2)
[2021-09-10] MEDS ORDERED: DEXTROSE 50% ABBOJECT 25 GM/50 ML SYRINGE IVP STA (20:40)
[2021-09-10 20:50] LABS: INR 1.1 (0.8-1.2); PT - PROTHROMBIN TIME 11.9 secs (9.9-12.6)
[2021-09-10] MEDS ORDERED: IOPAMIDOL-300 100 ML VIAL IVP ONE (21:09)
--- NOTE | 2021-09-10 21:51 | CT Report ---
PROCEDURE: Abdomen/Pelvis W INDICATIONS: GI Bleed CONTRAST: IV CONTRAST: Isovue 300 ml: 100 PO CONTRAST: *NO PO CONTRAST TECHNIQUE: After the administration of intravenous contrast, 5 mm thick sections acquired from the diaphragms to the symphysis. 5 mm thick coronal and sagittal reformats were acquired. For radiation dose reducti on, the following was used: automated exposure control, adjustment of mA and/or kV according to ross ent size. COMPARISON: May 31, 2018 FINDINGS: Inferior chest: No focal consolidation, pleural effusion, or pneumothorax. No cardiomegaly or perica rdial effusion. Gallbladder: No gallbladder wall thickening or pericholecystic fluid. There is small gallstones. Biliary tree: No intra-or extrahepatic biliary ductal dilatation. Liver: The liver demonstrates normal enhancement, size, and contour. Spleen: Normal enhancement, size and morphology is seen. Pancreas: No contour deforming mass or inflammatory change. Adrenals: Normal size without masses. Kidneys/ureters: Normal size and morphology. No solid masses or hydronephrosis. Vasculature: Aortobiiliac stent graft in situ. Dilatation of the infrarenal aorta, measuring up to 4 .1 cm. Lymphatic system: No pathologic enlargement by size criteria. GI/mesentery: Small hiatal hernia. No evidence of intestinal obstruction. Normal appearance of the ap pendix. Moderate stool burden throughout the colon, most prominent in the rectosigmoid region. Peritoneum/Retroperitoneum: No free intraperitoneal gas or large collection. Urinary bladder: The urinary bladder is distended with a smooth thin wall. Pelvic organs: No significant abnormality. Bones/soft tissues: Multifocal degenerative change. A right hip arthroplasty is again noted Trace fat-containing periumbilical hernia. IMPRESSION: 1.Small layering gallstones. 2.Moderate stool burden throughout the colon, most prominent in the rectosigmoid colon. Reviewed by: Brodie Herrera MD on 09/10/2021 9:50 PM PST Approved by: Brodie Herrera MD on 09/10/2021 9:50 PM PST Station ID: [id number]
[2021-09-10] MEDS ORDERED: ACETAMINOPHEN 325 MG TABLET PO PRN (23:04)
[2021-09-10] MEDS ORDERED: SODIUM CHLORIDE FLUSH 0.9% 10 ML SYRINGE IVP PRN (23:04)
[2021-09-10] MEDS ORDERED: ONDANSETRON 4 MG/2 ML VIAL IVP PRN (23:04)
--- NOTE | 2021-09-10 23:12 | HISTORY & PHYSICAL EXAMINATION ---
Chief Complaint - Chief Complaint Chief Complaint: BRBPR History of Present Illness - Admitted From Admitted From:: ED - History Obtained From History obtained from: ED provider and the patient and his daughter, at bedside - History of Present Illness HPI Comment/Other: This is a 71-year-old white male with a history of type 2 diabetes on Insulin and Metformin, coronary disease with old NH in 1993 and prior angioplasty, hypertension, brain cancer (lymphoma) diagnosed Apr [address] [place] Ignacio who manages his chemotherapy at [facility]. He has finished 7 of 8 chemo sessions, and is admitted for 7-9 days for these. He now has marked memory loss, and has seizures (which started 1 month ago). The patient was just discharged from [facility] 1 day ago, having finishing that chemo treatment. Today he had on and off heartburn and poor appetite and was also very constipated. He sat on the toilet for 45 minutes pushing hard with no results. He finally had an episode of large volume bright red blood per rectum at home and presented to the ED. He was found to have hypoglycemia with a serum glucose of 58, but he has not eaten for 9 hours. He had a stable hemoglobin and stable vital signs. He underwent CT imaging of the abdomen/pelvis which showed no evidence of colitis, there are small gallstones and there is significant stool in the rectosigmoid colon. He is being placed in Observation status to monitor his hemoglobin and for any further episodes of rectal bleeding. When asked about his wishes for CODE STATUS, he said he does not know, therefore default will be Full Code. All the details of the above were obtained from his daughter, as he did not even remember if the chemo gives him any side effects or what he usually does all day. History - Past Medical History Cardiovascular: reports: Hypertension, High cholesterol, [place] Respiratory: reports: None Endocrine/Autoimmune: reports: Type 2 diabetes GI: reports: GERD : reports: None HEENT: reports: None Psych: reports: None Musculoskeletal: reports: Osteoarthritis, Chronic back pain Derm: reports: None MRSA Hx?: No Other Past Medical History: Brain CA, on chemo - Past Surgical History Ortho: reports: Hip replacement Cardiovascular: reports: Angioplasty - Family & Social History Living arrangement: At home Living Situation: With family (He lives with his daughter and son-in-law) Social History Notes: Patient does not smoke cigarettes, he quit smoking when he had the NH 1993. He does not alcohol or use illicit drugs or marijuana. 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 He is from his , who got re-, but she still helps him (does laundry). - Substance History Use: Uses substance without health or social issues: NONE - POLST Patient has POLST: No Meds/Allgy - Home Medications Home Medications: Ambulatory Orders Medication Instructions Recorded Confirmed Atorvastatin [Lipitor] 40 mg ORAL DAILY 02/21/14 09/10/21 Lansoprazole [Prevacid] 15 mg ORAL DAILY 02/21/14 09/10/21 Metoprolol Succinate [Toprol Xl] 100 mg ORAL DAILY 02/21/14 09/10/21 metFORMIN [Glucophage] 2,000 mg PO DAILY 10/22/18 09/10/21 Cyanocobalamin (Vitamin B-12) 2,000 mg PO DAILY 09/10/21 09/10/21 [Vitamin B-12] Insulin Glargine [Lantus Solostar] 26 units SQ BID 09/10/21 09/10/21 Isosorbide Mononitrate ER [Imdur] 30 mg PO DAILY 09/10/21 09/10/21 Leucovorin Calcium 25 mg PO TID 09/10/21 09/10/21 Levetiracetam [Keppra] 500 mg PO BID 09/10/21 09/10/21 Tamsulosin HCl [Flomax] 0.4 mg PO DAILY 09/10/21 09/10/21 - Allergies Allergies/Adverse Reactions: Allergies Allergy/AdvReac Type Severity Reaction Status Date / Time No Known Drug Allergies Allergy Verified 09/10/21 19:45 Review of Systems - Constitutional Constitutional: reports: Poor appetite, Weight loss (many lbs lost since started chemo in Apr 2021) - Cardiovascular Cariovascular: reports: Syncope (On Thanksgiving he had syncope and was told it was from marked hypoglycemia (glu was 30), per his daughter.) - Gastrointestinal Gastrointestinal: reports: Abdominal pain (mild pain in lower mid-abdomen) - Neurological Neurological: reports: Memory problems, Seizures - All Other Systems All Other Systems: reports: Reviewed and negative Exam - Vital Signs Vital Signs: Vital Signs x48h Temp Pulse Resp BP Pulse Ox 09/10/21 21:00 78 16 179/81 H 100 09/10/21 19:42 72 16 151/84 H 99 09/10/21 19:32 36.8 C 64 13 151/84 H 97 - Physical Exam General Appearance: positive: No acute distress, Alert Eyes Bilateral: positive: Normal inspection, EOMI ENT: positive: ENT inspection nml, No signs of dehydration Neck: positive: Nml inspection, No JVD Respiratory: positive: No respiratory distress, Breath sounds nml Cardiovascular: positive: Regular rate & rhythm, No murmur Abdomen: positive: Non-tender, Nml bowel sounds, No distention Skin: positive: Warm, Dry Extremities: positive: Non-tender, No pedal edema Neurologic/Psychiatric: positive: Motor nml, Other (Poor memory) Conclusion/Plan - Problem List (1) Lower GI bleed Conclusion/Plan: Possibly he has a diverticular bleed or perhaps a hemorrhoidal bleed. We will follow his H/H every 6 hours. We will plan transfusion if Hgb drops below 7. We will hold any antiplatelet agents and anticoagulants. We will put hold parameters on blood pressure meds, in case there is rebleeding leading to hypotension. Will order a low fiber diet We will consider General Surgery consult for colonoscopy if there is rebleeding (2) Hypoglycemia Conclusion/Plan: Unclear why he had a low glucose of 58, when in the ER, thus we will continue with peripheral IV hydration containing D5. We will hold the Metformin, and not use his usual Lantus dose of 26 units twice daily but decrease the significant to 5 units twice daily Will order hypoglycemia protocol (3) Type 2 diabetes mellitus Conclusion/Plan: Will order a diabetic diet, check morning A1c. We will order sliding scale insulin. (4) Brain cancer Conclusion/Plan: We will continue patient's own (leucovorin). (5) Seizure disorder Conclusion/Plan: His Keppra dose will be continued (6) Poor short term memory Conclusion/Plan: This resulted after going through multiple courses of chemotherapy for the brain lymphoma (7) HTN (hypertension) Conclusion/Plan: We will continue with his usual blood pressure medications once they are reconciled. 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 Continue with his usual beta-kelly dose, holding parameters will be written. (9) PVD (peripheral vascular disease) Conclusion/Plan: The CT of abdomen reported that he has an enlarged aorta of 4.1 cm and aortobiiliac graft in place - Lab Results Fish Bones: 09/10/21 20:11 09/10/21 20:11 - Other Other Results/Comments: Attestation: The patient is expected to be discharged or transferred to another facility within 96 hours: Yes.
[2021-09-10 23:45] LABS: B. PARAPERTUSSIS- RESP PCR PAN NOT DETECTED; B. PERTUSSIS- RESP PCR PANEL NOT DETECTED; C. PNEUMONIAE- RESP PCR PANEL NOT DETECTED; CORONAVIRUS 229E-RESP PCR NOT DETECTED; CORONAVIRUS HKU1-RESP PCR NOT DETECTED; CORONAVIRUS NL63-RESP PCR NOT DETECTED; CORONAVIRUS OC43-RESP PCR NOT DETECTED; HUMAN METAPNEUMOVIRUS NOT DETECTED; INFLUENZA A- RESP PCR PANEL NOT DETECTED; INFLUENZA B - RESP PCR PANEL NOT DETECTED; M. PNEUMONIAE- RESP PCR PANEL NOT DETECTED; PARAINFLUENZA VIRUS 1 NOT DETECTED; PARAINFLUENZA VIRUS 2 NOT DETECTED; PARAINFLUENZA VIRUS 3 NOT DETECTED; PARAINFLUENZA VIRUS 4 NOT DETECTED; RHINOVIRUS/ENTEROVIRUS NOT DETECTED; RSV- RESP PCR PANEL NOT DETECTED; SARS-CoV-2 -RESP PCR PANEL NOT DETECTED
[2021-09-10] MEDS ORDERED: D5NS W/20 MEQ KCL 1,000 ML IV SCH (23:45)
[2021-09-11] MEDS: SODIUM CHLORIDE FLUSH 0.9% 10 ML SYRINGE IVP SCH ×3 (00:22→17:09)
[2021-09-11 01:13] LABS: BILIRUBIN,URINE NEGATIVE (NEGATIVE); CLARITY,URINE CLEAR (CLEAR); GLUCOSE, URINE (UA) NEGATIVE (NEGATIVE); KETONES,URINE (UA) NEGATIVE (NEGATIVE); LEUKOCYTE ESTERASE, URINE NEGATIVE (NEGATIVE); NITRITE,URINE NEGATIVE (NEGATIVE); OCCULT BLOOD,URINE NEGATIVE (NEGATIVE); PROTEIN,URINE NEGATIVE (NEGATIVE); UROBILINOGEN,URINE 0.2 (NORMAL) E.U./dL (NORMAL)
[2021-09-11] MEDS: ZINC OXIDE 20% OINT 30 GM TUBE TOP PRN ×4 (04:22→10:30)
[2021-09-11 05:49] LABS: EOSINOPHILS # (AUTO) 0.1 10^3/uL (0.0-0.7); EOSINOPHILS % (AUTO) 2.5 %; HCT - HEMATOCRIT 35.3 % (42.0-52.0); HGB - HEMOGLOBIN 11.3 g/dL (14.0-18.0); LYMPHOCYTES # (AUTO) 0.2 10^3/uL (1.5-3.5); LYMPHOCYTES % (AUTO) 3.9 %; MEAN CORPUSCULAR HEMOGLOBIN 28.5 pg (27.0-31.0); MEAN CORPUSCULAR VOLUME 89.1 fL (80.0-94.0); MEAN PLATELET VOLUME 8.5 fL (7.4-11.4); MONOCYTES # (AUTO) 0.2 10^3/uL (0.0-1.0); MONOCYTES % (AUTO) 4.1 %; NEUTROPHILS % (AUTO) 88.8 %; PLT - PLATELET COUNT 139 10^3/uL (130-450); RED BLOOD COUNT 3.96 10^6/uL (4.70-6.10); RED CELL DISTRIBUTION WIDTH 15.9 % (12.0-15.0); WHITE BLOOD COUNT 5.7 x10^3/uL (4.8-10.8)
[2021-09-11 05:56] LABS: CALCIUM 8.3 mg/dL (8.5-10.3); POTASSIUM 3.5 mmol/L (3.5-5.0)
[2021-09-11] MEDS ORDERED: PANTOPRAZOLE 40 MG TABLET PO SCH (07:00)
[2021-09-11] MEDS ORDERED: LEUCOVORIN CALCIUM 25 MG PO SCH ×2 (08:00→12:00)
[2021-09-11] MEDS ORDERED: MAGNESIUM CITRATE 296 ML BOTTLE PO PRN (08:00)
--- NOTE | 2021-09-11 08:01 | DISCHARGE SUMMARY ---
Discharge Summary Admit Date: 09/10/21 Discharge Date: 09/11/21 Discharging Provider: Amanda Rg Primary Care Provider: North Ignacio Code Status: Attempt Resuscitation Condition at Discharge: Good Discharge Disposition: 01 Home, Self Care - DIAGNOSES Admission Diagnoses: Lower GI bleed Hypoglycemia Type 2 diabetes mellitus Brain cancer Seizure disorder Poor short-term memory Hypertension History of myocardial infarction due to atherothrombotic coronary artery disease Peripheral vascular disease Discharge Diagnoses with Status of Each Condition: Constipation: Acute. Resolved. Patient was given magnesium citrate, MiraLAX and Dulcolax suppository which enabled him have a bowel movement prior to discharge. Lower GI bleed: Acute. Mild. Resolved. Secondary to hemorrhoids bleed or diverticular bleed. Hemoglobin was 12.2 prior to discharge. Hypoglycemia: Acute. Resolved. Patient has lost significant weight and as a result he is regular insulin dose is too high. Lantus was changed from 25 units subq twice daily to 5 units subcu twice daily. Hemoglobin A1c was 5.3 Type 2 diabetes mellitus: Lantus was changed from 25 units subq twice daily to 5 units subcu twice daily. Hemoglobin A1c was 5.3 Brain cancer: Currently undergoing chemotherapy. Patient to follow-up with his oncologist. Seizure disorder:Continue home medication. Poor short-term memory: Secondary to chemotherapy. Hypertension: Chronic. Stable. Continue home medications History of myocardial infarction due to atherothrombotic coronary artery disease: Stable. Resume home medications. Peripheral vascular disease - HPI History of Present Illness: This is a 71-year-old white male with a history of type 2 diabetes on Insulin and Metformin, coronary disease with old [place] in 1993 and prior angioplasty, hypertension, brain cancer (lymphoma) diagnosed Apr 2021 and Oncologist is Dr [place] Ignacio who manages his chemotherapy at [facility]. He has finished 7 of 8 chemo sessions, and is admitted for 7-9 days for these. He now has marked memory loss, and has seizures (which started 1 month ago). The patient was just discharged from [facility] 1 day ago, having finishing that chemo treatment. Today he had on and off heartburn and poor appetite and was also very constipated. He sat on the toilet for 45 minutes pushing hard with no results. He finally had an episode of large volume bright red blood per rectum at home and presented to the ED. He was found to have hyp oglycemia with a serum glucose of 58, but he has not eaten for 9 hours. He had a stable hemoglobin and stable vital signs. He underwent CT imaging of the abdomen/pelvis which showed no evidence of colitis, there are small gallstones and there is significant stool in the rectosigmoid colon. He is being placed in Observation status to monitor his hemoglobin and for any further episodes of rectal bleeding. When asked about his wishes for CODE STATUS, he said he does not know, therefore default will be Full Code. All the details of the above were obtained from his daughter, as he did not even remember if the chemo gives him any side effects or what he usually does all day. - HOSPITAL COURSE Hospital Course: [facility]. Serial H&H was done. Hemoglobin ranged between 11.1 and 12.2 which indicated stable. There was no overt bleeding through the course of the patient's hospital stay. The bright red blood per rectum was likely due to hemorrhoidal bleed or a diverticular bleed which did not recur. Patient was given MiraLAX, magnesium citrate and Dulcolax suppository. He was also encouraged to ambulate. Over an 18-hour. He was able to have a bowel movement which gave him significant relief. He was hypoglycemic at the time of admission with a blood glucose of 58. His hemoglobin A1c was 5.3. The patient has lost a significant amount of weight and as a result his Lantus dose of 25 units subcu twice daily is much higher than he requires. Upon discharge his Lantus was changed to 5 units subcu twice daily. He was instructed to follow-up with his primary care physician for further management. He was instructed to apply the petroleum base gel like Vaseline or to use Desitin to the bottom area which appeared irritated. He was encouraged to use Metamucil and or prune juice at least every other day and to keep active at home to enable regular bowel movements. He was discharged in stable condition. - ALLERGIES Allergies/Adverse Reactions: Allergies Allergy/AdvReac Type Severity Reaction Status Date / Time No Known Drug Allergies Allergy Verified 09/10/21 19:45 - MEDICATIONS Home Medications: Ambulatory Orders Medication Instructions Recorded Confirmed Lansoprazole [Prevacid] 30 mg ORAL DAILY 02/21/14 09/11/21 Metoprolol Succinate [Toprol Xl] 100 mg ORAL DAILY 02/21/14 09/10/21 Cyanocobalamin (Vitamin B-12) 2,000 mg PO DAILY 09/10/21 09/10/21 [Vitamin B-12] Isosorbide Mononitrate ER [Imdur] 30 mg PO DAILY 09/10/21 09/10/21 Leucovorin Calcium 25 mg PO Q8HR 09/10/21 09/11/21 Levetiracetam [Keppra] 500 mg PO BID 09/10/21 09/10/21 Tamsulosin HCl [Flomax] 0.4 mg PO QPM 09/10/21 09/11/21 Atorvastatin Calcium [Lipitor] 80 mg PO DAILY 09/11/21 09/11/21 Insulin Glargine [Lantus Solostar] 5 unit SUBQ BID 30 Days #1 pe 09/11/21 Metformin HCl [Metformin ER 2,000 mg PO DAILY 09/11/21 09/11/21 Osmotic] - PHYSICAL EXAM AT DISCHARGE General Appearance: positive: No acute distress, Alert Eyes Bilateral: positive: PERRL, EOMI ENT: positive: No signs of dehydration Neck: positive: No JVD, Trachea midline Respiratory: positive: Chest non-tender, No respiratory distress, Breath sounds nml. negative: Wheezes, Rales, Rhonchi Cardiovascular: positive: Regular rate & rhythm, No murmur, No gallop Abdomen: positive: Non-tender, No organomegaly, Nml bowel sounds, No distention. negative: Guarding, Rebound Back: positive: Nml inspection Skin: positive: Color nml, No rash, Warm, Dry, Other (redness/ excuriation aroung bottom area) Extremities: positive: Non-tender, Full ROM, Nml appearance, Pedal edema (+1 l ower exttremity edema) Neurologic/Psychiatric: positive: Oriented x3, Mood/affect nml - LABS Result Diagrams: 09/11/21 13:56 09/11/21 05:30 - TIME SPENT Time Spent in Discharge (Minutes): 20
--- NOTE | 2021-09-11 08:01 | Discharge Plan ---
Discharge Plan Problem Reviewed?: Yes Disposition: Home, Self Care Condition: Good Prescriptions: Insulin Glargine [Lantus Solostar] 5 unit SUBQ BID 30 Days #1 pe Diet: Diabetic Activity Restrictions: Activity as Tolerated Health Concerns: You presented with bright red blood per rectum for which it was thought that he possibly had a hemorrhoidal bleed. Further work-up in the ED included a CT of your abdomen/pelvis which showed significant stool in the rectosigmoid colon. You were monitored over. Of 18 hours and hemoglobins were checked. Your hemoglobin stayed stable Between 11.1 and 12.2. You were administered several bowel regimens which included MiraLAX, magnesium citrate and Dulcolax suppository. You were encouraged to ambulate around the nursing floor which you date. This was successful in enabling you to have a bowel movement after which you had significant relief. You have been advised to take Metamucil and/or prune juice Daily or every other day to enable regular soft bowel movements. You have also been advised to keep active. You were noted to have some irritated/sensitive skin around on your bottom for which you were advised to get petroleum based gel like Vaseline or Desitin and apply to that area for a protective barrier to allow to heal. You were also advised to keep the skin dry in the areas with skin breakdown. At admission your Who was 56. Your hemoglobin A1c is 5.3. You have lost significant amount of weight and at such your insulin regimen is too high. You have been advised to only take Lantus 5 units twice daily until you are evaluated at your next appointment with your primary care physician. The above instructions were provided to you with your daughter at bedside. You both expressed understanding and are agreeable with the plan. It is expected that you follow-up with your primary care physician as scheduled in a couple of days. No Smoking: If you smoke, Please STOP! Call for help. Follow-up with: CAL HURD [Primary Care Provider] -
[2021-09-11] MEDS: INSULIN ASPART 300 UNIT/3 ML PEN SUBQ SCH ×3 (08:35→17:09)
[2021-09-11] MEDS ORDERED: METOPROLOL SUCCINATE 50 MG TABLET PO SCH (09:00)
[2021-09-11] MEDS ORDERED: ISOSORBIDE MONONITRATE ER 30 MG TABLET PO SCH (09:00)
[2021-09-11] MEDS ORDERED: LANSOPRAZOLE 30 MG ORAL SCH (09:00)
[2021-09-11] MEDS ORDERED: LEVETIRACETAM 500 MG PO SCH (09:00)
[2021-09-11] MEDS ORDERED: INSULIN GLARGINE 300 UNIT/3 ML PEN SUBQ SCH (09:00)
[2021-09-11] MEDS ORDERED: TAMSULOSIN 0.4 MG CAPSULE PO SCH (09:00)
[2021-09-11] MEDS ORDERED: METOPROLOL SUCCINATE 100 MG ORAL SCH (09:00)
[2021-09-11] MEDS ORDERED: levETIRAcetam 250 MG TABLET PO SCH ×2 (09:00)
[2021-09-11] MEDS ORDERED: polyethylene glycoL 3350 17 GM PACKET PO SCH (09:00)
[2021-09-11 11:35] LABS: ESTIMATED AVERAGE GLUCOSE 105 mg/dL (70-100); HEMOGLOBIN A1c% 5.3 % (4.27-6.07)
[2021-09-11] MEDS ORDERED: BISACODYL 10 MG SUPP PR PRN (11:35)
[2021-09-11 12:11] LABS: HCT - HEMATOCRIT 34.5 % (42.0-52.0); HGB - HEMOGLOBIN 11.1 g/dL (14.0-18.0)
[2021-09-11 14:02] LABS: BASOPHILS % (AUTO) 0.2 %; EOSINOPHILS # (AUTO) 0.2 10^3/uL (0.0-0.7); EOSINOPHILS % (AUTO) 2.6 %; HCT - HEMATOCRIT 37.9 % (42.0-52.0); HGB - HEMOGLOBIN 12.2 g/dL (14.0-18.0); LYMPHOCYTES # (AUTO) 0.3 10^3/uL (1.5-3.5); LYMPHOCYTES % (AUTO) 3.2 %; MEAN CORPUSCULAR HEMOGLOBIN 29.1 pg (27.0-31.0); MEAN CORPUSCULAR HGB CONC 32.2 g/dL (32.0-36.0); MEAN CORPUSCULAR VOLUME 90.5 fL (80.0-94.0); MEAN PLATELET VOLUME 8.4 fL (7.4-11.4); MONOCYTES # (AUTO) 0.4 10^3/uL (0.0-1.0); MONOCYTES % (AUTO) 4.4 %; NEUTROPHILS # (AUTO) 7.4 10^3/uL (1.5-6.6); NEUTROPHILS % (AUTO) 89.1 %; PLT - PLATELET COUNT 130 10^3/uL (130-450); RED BLOOD COUNT 4.19 10^6/uL (4.70-6.10); RED CELL DISTRIBUTION WIDTH 15.9 % (12.0-15.0); WHITE BLOOD COUNT 8.3 x10^3/uL (4.8-10.8)
--- NOTE | 2021-09-11 14:08 | PHARMACY PROGRESS NOTE ---
- Best Possible Medication History Admit Date and Time: 09/10/21 5756 Processed by: Pharmacy Medication History completed: Yes Patient Interview: Completed Secondary Source(s): Insurance records As the person ultimately responsible for medication therapy, providers are able to order a medication from an existing home medication list in [facility] via the "Reconcile Routine" prior to Confirmation of that medication by operations support manager. Such practice is discouraged except when the physician, in their clinical judgment, deems that a medical need exists for a medication without regard to previous use.
[2021-09-11 16:10] VITALS: BP 153/79
== END 2021-09-11 19:27 | disposition home or self-care (01) ==
LOC: ED 19:38 → MS2 23:04
PROVIDERS: ADMIT Internal Medicine; ATTEND Internal Medicine
DX: K57.31 Diverticulosis of large intestine without perforation or abscess with bleeding (principal); K64.9 Unspecified hemorrhoids; K59.00 Constipation, unspecified; K21.9 Gastro-esophageal reflux disease without esophagitis; I10 Essential (primary) hypertension; C71.9 Malignant neoplasm of brain, unspecified; D64.9 Anemia, unspecified; L89.151 Pressure ulcer of sacral region, stage 1; E11.51 Type 2 diabetes mellitus with diabetic peripheral angiopathy without gangrene; E11.649 Type 2 diabetes mellitus with hypoglycemia without coma; G40.909 Epilepsy, unspecified, not intractable, without status epilepticus; I25.10 Atherosclerotic heart disease of native coronary artery without angina pectoris; I25.2 Old myocardial infarction; T45.8X5A Adverse effect of other primarily systemic and hematological agents, initial encounter; R41.3 Other amnesia; Z20.822 Contact with and (suspected) exposure to COVID-19; Z79.4 Long term (current) use of insulin; Z79.84 Long term (current) use of oral hypoglycemic drugs; Z79.899 Other long term (current) drug therapy; Z87.891 Personal history of nicotine dependence; Z92.21 Personal history of antineoplastic chemotherapy; Z98.61 Coronary angioplasty status
CPT/HCPCS: 36415; 51798; 74177; 80048; 80053; 81003; 82272; 83036; 83690; 85014; 85018; 85025; 85610; 86850; 86900; 86901; 87631; 96361; 96374; 99283; 99285; A9270; G0378; J1815; Q9967; 0202U; 81001; 82274; 87086